=== PATIENT | female | born 1965 | race Caucasian/White ===

== ENCOUNTER → 2018-02-17 | Outpatient (CLI) | payer MEDICARE, OTHER ==
[~2018-02-17] MED LIST: ALBU90OI6; AMIT10 PO; ANTIHYPERTENSIVE; AZIT250 PO; Amphetamine Sal20 MG PO; Antivert12.5 MG PO; BACITO TP; BACL10 PO; BUPR150ER; BUPRENORPHINE HC8 MG SL; BUSP15 PO; BUSP5 PO; Bactrim Ds Tab1 EACH PO; CHOL10002 PO; CONEST1.25 PO; CRANBERRY CONC1 EACH PO; CRUTCH4 USE; CYCL10 PO; DULO60; FLUO20; GABA600; GABA600 PO; HYDACE10B PO; HYDACE5 PO; IBUP600 PO; IBUP800 PO; IBUPROFEN; IRON150C PO; LAMO100 PO; LAMO50 PO; LEVOTHYROXINE; LEVSOD112 PO; LIOT5 PO; LORA1 PO; Lamictal150 MG PO; MECL25; METO10 PO; METO25ER PO; MONT10T PO; MUSCLE RELAXER; Metoprolol Succ25 MG PO; NAPR550 PO; Norco 5-325 Ta1 EACH PO; OMEP20ER PO; OPANA ER40 MG; OXYC10ER; OXYMORPHONE HCL5 MG PO; Omeprazole20 M1; PAIN MED; PARO30; PARO30 PO; PROACE100 PO; RANI150 PO; SENN187; SLEEP AID; SULTRIDS PO; Senna8.6 M1 PO; Silvadene20 GM TOP; Simvastatin20 MG PO; Strattera80 MG PO; TRAZ100 PO; TRAZ50 PO; Toprol Xl25 MG PO; Unithroid100 MCG PO; VALACYCLOVIR1000 MG PO; VARE1 PO
== END ==
LOC: LAB SHORT 19:25 → LAB 19:25
DX: R68.82 Decreased libido (principal)
CPT/HCPCS: 84403

== ENCOUNTER → 2018-06-07 | Outpatient (CLI) | payer MEDICARE, OTHER ==
[~2018-06-07] MED LIST changes: +Hydrocodone-Ap1 EA20; +LEVO-T112 MCG; +LOSARTAN POTAS100 MG PO; +Robaxin500 MG PO
== END | disposition home or self-care (01) ==
LOC: LAB 11:16 → LAB SHORT 11:16
DX: Z51.81 Encounter for therapeutic drug level monitoring (principal); M54.2 Cervicalgia; M54.5 Low back pain; G89.29 Other chronic pain; Z79.1 Long term (current) use of non-steroidal anti-inflammatories (NSAID)
CPT/HCPCS: 80369; G0480

== ENCOUNTER 2018-11-22 17:17 | Emergency (ER) | payer MEDICARE, OTHER ==
[~2018-11-22] VITALS: Ht 172.7 cm; Wt 72.6 kg
[2018-11-22 18:03] LABS: BASOPHILS ABSOLUTE AUTO 0.02 K/mm3 (0.00-0.23); BASOPHILS PERCENT AUTO 0 % (0-2); EOSINOPHILS ABSOLUTE AUTO 0.02 K/mm3 (0.00-0.68); EOSINOPHILS PERCENT AUTO 0 % (0-6); Hematocrit 33.5 % (33.0-51.0); IMMATURE GRAN ABSOLUTE AUTO 0.04 K/mm3 (0.00-0.10); IMMATURE GRAN PERCENT AUTO 1 % (0-1); LYMPHOCYTES ABSOLUTE AUTO 1.84 K/mm3 (0.84-5.20); LYMPHOCYTES PERCENT AUTO 26 % (21-46); MONOCYTES ABSOLUTE AUTO 0.31 K/mm3 (0.16-1.47); MONOCYTES PERCENT AUTO 4 % (4-13); Mean Corpuscular HGB 32.9 pg (26.0-34.0); Mean Corpuscular HGB Conc 32.8 g/dL (31.5-36.5); Mean Corpuscular Volume 100 fL (80-100); Mean Platelet Volume 10.1 fL (9.1-12.4); NEUTROPHILS ABSOLUTE AUTO 4.89 K/mm3 (1.96-9.15); NEUTROPHILS PERCENT AUTO 69 % (41-73); Platelet Count 165 K/mm3 (150-400); RDW Coefficient Variation 13.8 % (11.7-14.2); RDW Standard Deviation 50.6 fL (35.1-46.3); Red Blood Cell Count 3.34 M/mm3 (3.80-5.20); White Blood Cell Count 7.12 K/mm3 (4.00-11.30)
[2018-11-22 18:31] LABS: Alanine Aminotransfer (ALT/SGP 19 U/L (12-78); Albumin, Blood 3.2 g/dL (3.4-5.0); Albumin/Globulin Ratio 1.2 (0.8-1.8); Alk Phos 37 U/L (50-136); Anion Gap 9 mmol/L (6-16); Aspartate Aminotrans (AST/SGOT 15 U/L (12-37); Bilirubin, Total 0.4 mg/dL (0.1-1.0); Blood Urea Nitrogen 34 mg/dL (8-24); Bun/Creatinine Ratio 29.8 (12.0-20.0); CO2, Blood 22 mmol/L (21-32); Calcium, Blood 8.2 mg/dL (8.5-10.1); Chloride, Blood 106 mmol/L (98-108); Creatinine, Blood 1.14 mg/dL (0.40-1.00); Globulin, Blood 2.6 g/dL (2.2-4.0); Glomerular Filtration Rate 52 (60-); Glucose, Blood 123 mg/dL (70-99); Potassium, Blood 4.3 mmol/L (3.5-5.5); Sodium, Blood 137 mmol/L (136-145); Total Protein, Blood 5.8 g/dL (6.4-8.2); Troponin I <0.015 ng/mL (0.000-0.040)
[2018-11-22 19:13] LABS: Free Thyroxine 1.06 ng/dL (0.70-1.60)
[2018-11-22 19:14] LABS: Triiodothyronine, Free 1.44 pg/mL (2.18-3.98)
== END 2018-11-22 20:05 | disposition home or self-care (01) ==
LOC: ER 17:17
PROVIDERS: Emergency Medicine
DX: E86.0 Dehydration (principal); R55 Syncope and collapse; I10 Essential (primary) hypertension; E78.5 Hyperlipidemia, unspecified; E03.9 Hypothyroidism, unspecified; F17.210 Nicotine dependence, cigarettes, uncomplicated; Z79.899 Other long term (current) drug therapy; Z79.891 Long term (current) use of opiate analgesic
CPT/HCPCS: 36415; 71045; 80053; 83735; 84439; 84481; 84484; 85025; 93005; 93010; 96360; 96361; 99284-25; J7030

== ENCOUNTER 2019-01-16 22:07 | Emergency (ER) | payer MEDICARE, OTHER ==
[~2019-01-16] VITALS: Ht 167.6 cm; Wt 68.0 kg
[2019-01-16 22:34] LABS: BASOPHILS ABSOLUTE AUTO 0.01 K/mm3 (0.00-0.23); BASOPHILS PERCENT AUTO 0 % (0-2); EOSINOPHILS ABSOLUTE AUTO 0.06 K/mm3 (0.00-0.68); EOSINOPHILS PERCENT AUTO 2 % (0-6); Hematocrit 31.1 % (33.0-51.0); Hemoglobin 10.1 g/dL (11.5-16.0); IMMATURE GRAN ABSOLUTE AUTO 0.01 K/mm3 (0.00-0.10); IMMATURE GRAN PERCENT AUTO 0 % (0-1); LYMPHOCYTES ABSOLUTE AUTO 1.55 K/mm3 (0.84-5.20); LYMPHOCYTES PERCENT AUTO 41 % (21-46); MONOCYTES PERCENT AUTO 8 % (4-13); Mean Corpuscular HGB 32.5 pg (26.0-34.0); Mean Corpuscular HGB Conc 32.5 g/dL (31.5-36.5); Mean Corpuscular Volume 100 fL (80-100); Mean Platelet Volume 10.7 fL (9.1-12.4); NEUTROPHILS ABSOLUTE AUTO 1.87 K/mm3 (1.96-9.15); NEUTROPHILS PERCENT AUTO 49 % (41-73); Platelet Count 104 K/mm3 (150-400); RDW Standard Deviation 50.6 fL (35.1-46.3); Red Blood Cell Count 3.11 M/mm3 (3.80-5.20)
[2019-01-16 22:54] LABS: Alanine Aminotransfer (ALT/SGP 37 U/L (12-78); Albumin, Blood 3.2 g/dL (3.4-5.0); Albumin/Globulin Ratio 1.1 (0.8-1.8); Alk Phos 81 U/L (50-136); Anion Gap 8 mmol/L (6-16); Aspartate Aminotrans (AST/SGOT 27 U/L (12-37); Bilirubin, Total 0.2 mg/dL (0.1-1.0); Blood Urea Nitrogen 14 mg/dL (8-24); Bun/Creatinine Ratio 14.8 (12.0-20.0); CO2, Blood 27 mmol/L (21-32); Calcium, Blood 8.1 mg/dL (8.5-10.1); Chloride, Blood 105 mmol/L (98-108); Creatinine, Blood 0.94 mg/dL (0.40-1.00); Globulin, Blood 2.8 g/dL (2.2-4.0); Glomerular Filtration Rate >60 (60-); Glucose, Blood 87 mg/dL (70-99); Potassium, Blood 3.9 mmol/L (3.5-5.5); Sodium, Blood 140 mmol/L (136-145); Troponin I <0.015 ng/mL (0.000-0.040)
== END 2019-01-16 23:09 | disposition home or self-care (01) ==
LOC: ER 22:07
PROVIDERS: Emergency Medicine
DX: I10 Essential (primary) hypertension (principal); Z88.0 Allergy status to penicillin; Z79.899 Other long term (current) drug therapy; E78.5 Hyperlipidemia, unspecified; E03.9 Hypothyroidism, unspecified; F17.210 Nicotine dependence, cigarettes, uncomplicated
CPT/HCPCS: 36415; 80053; 84484; 85025; 93005; 93010; 99284-25

== ENCOUNTER → 2019-02-05 | Outpatient (CLI) | payer MEDICARE, OTHER ==
[~2019-02-05] MED LIST changes: +CORTISONE60 GM TOP; +HYDHCL25 PO
[2019-02-07 14:18] LABS: Adenovirus F 40/41 Not Detected (NOT DETECT); Astrovirus Not Detected (NOT DETECT); Campylobacter Sp Not Detected (NOT DETECT); Cryptosporidium Not Detected (NOT DETECT); Cyclospora Cayetanensis Not Detected (NOT DETECT); E. Coli O157 Not Detected (NOT DETECT); Entamoeba Histolytica Not Detected (NOT DETECT); Enteroaggregative E. coli-EAEC Not Detected (NOT DETECT); Enteropathogenic E. coli-EPEC Not Detected (NOT DETECT); Enterotoxigenic E. coli-ETEC Not Detected (NOT DETECT); Giardia Lamblia Not Detected (NOT DETECT); Norovirus GI/GII Not Detected (NOT DETECT); Plesiomonas Shigelloides Not Detected (NOT DETECT); Rotavirus A Not Detected (NOT DETECT); Salmonella Sp Not Detected (NOT DETECT); Sapovirus Not Detected (NOT DETECT); Shiga Toxin-prod E. coli-STEC Not Detected (NOT DETECT); Shigella/Enteroin E. coli-EIEC Not Detected (NOT DETECT); Vibrio Cholerae Not Detected (NOT DETECT); Vibrio Sp Not Detected (NOT DETECT); Yersinia Enterocolitica Not Detected (NOT DETECT)
== END | disposition home or self-care (01) ==
LOC: OLS 17:30 → LAB SHORT 17:30 → EDSTATUS 01-26 08:25 → LAB FUT 01-26 08:25
PROVIDERS: Family Medicine
DX: K52.9 Noninfective gastroenteritis and colitis, unspecified (principal)
CPT/HCPCS: 0097U

== ENCOUNTER 2019-02-18 20:52 | Emergency (ER) | payer OTHER ==
[~2019-02-18] VITALS: Ht 165.1 cm; Wt 65.8 kg
[~2019-02-18 20:52] MED LIST changes: -CORTISONE60 GM TOP; -HYDHCL25 PO
[2019-02-18 21:18] LABS: BASOPHILS ABSOLUTE AUTO 0.03 K/mm3 (0.00-0.23); BASOPHILS PERCENT AUTO 0 % (0-2); EOSINOPHILS ABSOLUTE AUTO 0.04 K/mm3 (0.00-0.68); EOSINOPHILS PERCENT AUTO 1 % (0-6); Hematocrit 35.8 % (33.0-51.0); IMMATURE GRAN ABSOLUTE AUTO 0.02 K/mm3 (0.00-0.10); IMMATURE GRAN PERCENT AUTO 0 % (0-1); LYMPHOCYTES ABSOLUTE AUTO 1.28 K/mm3 (0.84-5.20); LYMPHOCYTES PERCENT AUTO 16 % (21-46); MONOCYTES ABSOLUTE AUTO 0.73 K/mm3 (0.16-1.47); MONOCYTES PERCENT AUTO 9 % (4-13); Mean Corpuscular HGB 33.1 pg (26.0-34.0); Mean Corpuscular HGB Conc 33.5 g/dL (31.5-36.5); Mean Corpuscular Volume 99 fL (80-100); Mean Platelet Volume 10.5 fL (9.1-12.4); NEUTROPHILS PERCENT AUTO 74 % (41-73); Platelet Count 122 K/mm3 (150-400); RDW Coefficient Variation 12.9 % (11.7-14.2); RDW Standard Deviation 46.3 fL (35.1-46.3); Red Blood Cell Count 3.62 M/mm3 (3.80-5.20)
[2019-02-18 21:35] LABS: Alanine Aminotransfer (ALT/SGP 33 U/L (12-78); Albumin, Blood 4.3 g/dL (3.4-5.0); Albumin/Globulin Ratio 1.3 (0.8-1.8); Alk Phos 69 U/L (50-136); Anion Gap 10 mmol/L (6-16); Aspartate Aminotrans (AST/SGOT 51 U/L (12-37); Bilirubin, Total 0.6 mg/dL (0.1-1.0); Blood Urea Nitrogen 15 mg/dL (8-24); Bun/Creatinine Ratio 20.5 (12.0-20.0); CO2, Blood 25 mmol/L (21-32); Calcium, Blood 9.3 mg/dL (8.5-10.1); Chloride, Blood 101 mmol/L (98-108); Creatinine, Blood 0.73 mg/dL (0.40-1.00); Globulin, Blood 3.4 g/dL (2.2-4.0); Glomerular Filtration Rate >60 (60-); Glucose, Blood 88 mg/dL (70-99); Potassium, Blood 3.9 mmol/L (3.5-5.5); Sodium, Blood 136 mmol/L (136-145); Total Protein, Blood 7.7 g/dL (6.4-8.2)
[2019-02-18] MEDS ORDERED: CORTISONE60 GM TOP (21:54)
[2019-02-18] MEDS ORDERED: HYDHCL25 PO (21:54)
== END 2019-02-18 23:25 | disposition home or self-care (01) ==
LOC: ER 20:52
PROVIDERS: Emergency Medicine
DX: S40.862A Insect bite (nonvenomous) of left upper arm, initial encounter (principal); S00.06XA Insect bite (nonvenomous) of scalp, initial encounter; F41.9 Anxiety disorder, unspecified; R05 Cough; I10 Essential (primary) hypertension; E03.9 Hypothyroidism, unspecified; E78.5 Hyperlipidemia, unspecified; F17.210 Nicotine dependence, cigarettes, uncomplicated; Z88.0 Allergy status to penicillin; Z79.899 Other long term (current) drug therapy; Z79.891 Long term (current) use of opiate analgesic; W57.XXXA Bitten or stung by nonvenomous insect and other nonvenomous arthropods, initial encounter
CPT/HCPCS: 71046; 80053; 85025; 96374; 99284-25; J2060

== ENCOUNTER 2019-02-19 14:18 | Emergency (ER) | payer MEDICARE, OTHER ==
[~2019-02-19] VITALS: Ht 167.6 cm; Wt 67.1 kg
[~2019-02-19 14:18] MED LIST changes: +CORTISONE60 GM TOP; +HYDHCL25 PO
== END 2019-02-19 18:09 | disposition home or self-care (01) ==
LOC: ER 14:18
DX: S46.911A Strain of unspecified muscle, fascia and tendon at shoulder and upper arm level, right arm, initial encounter (principal); S46.812A Strain of other muscles, fascia and tendons at shoulder and upper arm level, left arm, initial encounter; W19.XXXA Unspecified fall, initial encounter; Z79.899 Other long term (current) drug therapy; F20.9 Schizophrenia, unspecified; F17.210 Nicotine dependence, cigarettes, uncomplicated
CPT/HCPCS: 73070; 73090; 99283-25

== ENCOUNTER → 2019-08-01 | Outpatient (CLI) | payer MEDICARE, OTHER ==
[2019-08-01 18:33] LABS: Appearance, Urine Clear (Clear); Bilirubin, Urine Neg (Neg); Blood, Urine Neg (Neg); Color, Urine Yellow (P-Yellow); Glucose Qualitative, Urine Neg (Neg); Ketones, Urine Neg (Neg); Leukocyte Esterase, Urine Neg (Neg); Nitrite, Urine Neg (Neg); Protein, Urine Neg (Neg); Urobilinogen, Urine NORM (Normal)
== END ==
LOC: LAB 17:40 → LAB SHORT 17:40
PROVIDERS: Registered Nurse Community Health
DX: N89.8 Other specified noninflammatory disorders of vagina (principal); R33.9 Retention of urine, unspecified; R35.8 Other polyuria; R30.0 Dysuria; R87.89 Other abnormal findings in specimens from female genital organs; Z90.710 Acquired absence of both cervix and uterus
CPT/HCPCS: 81003; 87070; 87086; 87205

== ENCOUNTER → 2020-01-14 | Outpatient (CLI) | payer MEDICARE, OTHER ==
[~2020-01-14] MED LIST changes: +GABAPENTIN600 MG PO; +Norco 10-325 T1 EACH PO
== END | disposition home or self-care (01) ==
LOC: LAB SHORT 11:19 → LAB EV 11:19
DX: Z48.01 Encounter for change or removal of surgical wound dressing (principal)
CPT/HCPCS: 87071; 87075; 87205

== ENCOUNTER 2020-03-28 13:38 | Day surgery (SDC) | payer MEDICARE, OTHER ==
[~2020-03-28] VITALS: Ht 167.6 cm; Wt 66.1 kg
[~2020-03-28 13:38] MED LIST changes: +ALBU90OI INH; +EUTHYROX125 MCG PO; +Flovent Disku250 MCG INH; +Gabapentin600 MG PO; +IBU600 MG PO; +LOSARTAN POTAS100 M1 PO; +MODA200 PO; +MODAFINIL100 MG PO; +OMEPRAZOLE MAGN20 MG PO; +Premarin0.3 MG PO; +Prozac20 MG PO; +SENNA LAXATIVE8.6 MG PO; +SIMV40 PO; +TOPROL XL200 MG PO
== END 2020-03-28 15:25 | disposition home or self-care (01) ==
LOC: ORSCSDS 13:38
PROVIDERS: Internal Medicine Gastroenterology
PROC: 0D757ZZ Dilation of Esophagus, Via Natural or Artificial Opening (ICD-10-PCS; principal; 2020-03-28 14:45)
PROC: 0DB58ZX Excision of Esophagus, Via Natural or Artificial Opening Endoscopic, Diagnostic (ICD-10-PCS; principal; 2020-03-28 14:45)
DX: R13.14 Dysphagia, pharyngoesophageal phase (principal); K21.9 Gastro-esophageal reflux disease without esophagitis; F17.210 Nicotine dependence, cigarettes, uncomplicated; I10 Essential (primary) hypertension; J45.909 Unspecified asthma, uncomplicated; E03.9 Hypothyroidism, unspecified; G40.909 Epilepsy, unspecified, not intractable, without status epilepticus; Z79.899 Other long term (current) drug therapy
CPT/HCPCS: 87081; 88305; J2704; J7120

== ENCOUNTER 2020-06-04 15:21 | Emergency (ER) | payer MEDICARE, OTHER ==
[~2020-06-04] VITALS: Ht 167.6 cm; Wt 65.8 kg
[~2020-06-04 15:21] MED LIST changes: -ALBU90OI INH; -EUTHYROX125 MCG PO; -Flovent Disku250 MCG INH; -Gabapentin600 MG PO; -IBU600 MG PO; -LOSARTAN POTAS100 M1 PO; -MODA200 PO; -MODAFINIL100 MG PO; -OMEPRAZOLE MAGN20 MG PO; -Prozac20 MG PO; -SIMV40 PO; -TOPROL XL200 MG PO
[2020-06-04 17:50] LABS: Calcium, Ionized (POC) 1.15 mmol/L (1.10-1.46); Chloride (POC) 96 mmol/L (98-108); Creatinine (POC) 1.2 mg/dL (0.6-1.0); Glucose (ISTAT POC) 91 mg/dL (70-99); Hemoglobin (POC) 12.6 g/dL (12.0-16.0); Sodium (POC) 131 mmol/L (135-148); Total CO2 (POC) 28 mmol/L (21-32)
[2020-06-06] MEDS ORDERED: ACYCLOVIR5 GM TOP (21:09)
[2020-06-06] MEDS ORDERED: ACYCLOVIR400 MG PO (21:10)
[2020-06-06] MEDS ORDERED: Chantix1 MG PO (21:11)
[2020-06-06] MEDS ORDERED: HYDACE10B PO (21:13)
[2020-06-06] MEDS ORDERED: ATOMOXETINE HCL PO (21:14)
[2020-06-06] MEDS ORDERED: TRAZ100 PO (21:14)
[2020-06-06] MEDS ORDERED: AMLODIPINE BESYL5 MG PO (21:17)
[2020-06-06] MEDS ORDERED: CHLO25B PO (21:17)
[2020-06-06] MEDS ORDERED: CYCL10 PO (21:21)
[2020-06-06] MEDS ORDERED: FLUOXETINE HCL60 MG PO (21:22)
[2020-06-06] MEDS ORDERED: MODA200 PO (21:23)
[2020-06-06] MEDS ORDERED: TOPROL XL200 MG PO (21:23)
[2020-06-06] MEDS ORDERED: IBU600 MG PO (21:24)
[2020-06-06] MEDS ORDERED: MONT10T PO (21:26)
[2020-06-06] MEDS ORDERED: Flovent Disku250 MCG INH (21:27)
[2020-06-06] MEDS ORDERED: Buspirone HCl15 MG PO (21:28)
[2020-06-06] MEDS ORDERED: Flonase 0.05% N16 GM (21:29)
[2020-06-06] MEDS ORDERED: Gabapentin600 MG PO (21:31)
[2020-06-06] MEDS ORDERED: Estrace Vagin42.5 GM (21:38)
[2020-06-06] MEDS ORDERED: OMEPRAZOLE MAGN20 MG PO (21:38)
[2020-06-06] MEDS ORDERED: PROG100 PO (21:39)
[2020-06-06] MEDS ORDERED: ESTRADIOL1 M1 PO (21:39)
[2020-06-06] MEDS ORDERED: EUTHYROX125 MCG PO (21:40)
[2020-06-06] MEDS ORDERED: LOSARTAN POTAS100 M1 PO (21:40)
[2020-06-06] MEDS ORDERED: SIMV40 PO (21:41)
[2020-06-06] MEDS ORDERED: ALBU90OI INH (21:41)
[2020-06-06] MEDS ORDERED: B-121000 MC3 PO (22:59)
[2020-06-06] MEDS ORDERED: VITAMIN D325 MC3 PO (23:01)
[2020-06-06] MEDS ORDERED: CALCIUM PO (23:02)
[2020-06-06] MEDS ORDERED: FEROSUL325 M1 PO (23:02)
[2020-06-06] MEDS ORDERED: MULVITA PO (23:03)
== END 2020-06-04 18:15 | disposition home or self-care (01) ==
LOC: ER 15:21
PROVIDERS: Emergency Medicine
DX: S06.0X9A Concussion with loss of consciousness of unspecified duration, initial encounter (principal); S00.83XA Contusion of other part of head, initial encounter; F17.210 Nicotine dependence, cigarettes, uncomplicated; Z79.899 Other long term (current) drug therapy; W18.30XA Fall on same level, unspecified, initial encounter
CPT/HCPCS: 36415; 70450; 72125; 80047; 85014; 93005; 93010; 99284-25

== ENCOUNTER 2020-11-20 13:22 | Emergency (ER) | payer MEDICARE, OTHER ==
[~2020-11-20] VITALS: Ht 167.6 cm; Wt 65.3 kg
[~2020-11-20 13:22] MED LIST changes: +ACYCLOVIR400 MG PO; +ACYCLOVIR5 GM TOP; +ALBU90OI INH; +AMLODIPINE BESYL5 MG PO; +ATOMOXETINE HCL PO; +B-121000 MC3 PO; +Buspirone HCl15 MG PO; +CALCIUM PO; +CHLO25B PO; +Chantix1 MG PO; +ESTRADIOL1 M1 PO; +EUTHYROX125 MCG PO; +Estrace Vagin42.5 GM; +FEROSUL325 M1 PO; +FLUOXETINE HCL60 MG PO; +Flonase 0.05% N16 GM; +Flovent Disku250 MCG INH; +Gabapentin600 MG PO; +IBU600 MG PO; +LOSARTAN POTAS100 M1 PO; +MODA200 PO; +MULVITA PO; +OMEPRAZOLE MAGN20 MG PO; +PROG100 PO; +SIMV40 PO; +TOPROL XL200 MG PO; +VITAMIN D325 MC3 PO
[2020-11-20 14:30] LABS: Calcium, Ionized (POC) 1.18 mmol/L (1.10-1.46); Chloride (POC) 100 mmol/L (98-108); Creatinine (POC) 1.1 mg/dL (0.6-1.0); Glucose (ISTAT POC) 123 mg/dL (70-99); Hemoglobin (POC) 14.3 g/dL (12.0-16.0); Potassium (POC) 3.7 mmol/L (3.5-5.5); Sodium (POC) 135 mmol/L (135-148); Total CO2 (POC) 22 mmol/L (21-32)
== END 2020-11-20 14:42 | disposition home or self-care (01) ==
LOC: ER 13:22
PROVIDERS: Physician Assistant
DX: L24.5 Irritant contact dermatitis due to other chemical products (principal); F17.200 Nicotine dependence, unspecified, uncomplicated; Z79.899 Other long term (current) drug therapy
CPT/HCPCS: 36415; 80047; 85014; 99282

== ENCOUNTER 2023-02-02 11:37 | Emergency (ER) | payer MEDICARE, OTHER ==
[~2023-02-02] VITALS: Ht 167.6 cm; Wt 68.0 kg
[2023-02-02 12:22] LABS: Source, Urine Clean Catch
[2023-02-02 12:26] LABS: BASOPHILS ABSOLUTE AUTO 0.02 K/mm3 (0.00-0.23); BASOPHILS PERCENT AUTO 0 % (0-2); EOSINOPHILS ABSOLUTE AUTO 0.08 K/mm3 (0.00-0.68); EOSINOPHILS PERCENT AUTO 2 % (0-6); Hematocrit 35.2 % (33.0-51.0); Hemoglobin 11.9 g/dL (11.5-16.0); IMMATURE GRAN ABSOLUTE AUTO 0.01 K/mm3 (0.00-0.10); IMMATURE GRAN PERCENT AUTO 0 % (0-1); LYMPHOCYTES ABSOLUTE AUTO 1.72 K/mm3 (0.84-5.20); LYMPHOCYTES PERCENT AUTO 34 % (21-46); MONOCYTES ABSOLUTE AUTO 0.43 K/mm3 (0.16-1.47); MONOCYTES PERCENT AUTO 9 % (4-13); Mean Corpuscular HGB 31.1 pg (26.0-34.0); Mean Corpuscular HGB Conc 33.8 g/dL (31.5-36.5); Mean Corpuscular Volume 92 fL (80-100); Mean Platelet Volume 9.7 fL (9.1-12.4); NEUTROPHILS ABSOLUTE AUTO 2.75 K/mm3 (1.96-9.15); NEUTROPHILS PERCENT AUTO 55 % (41-73); Platelet Count 189 K/mm3 (150-400); RDW Coefficient Variation 15.1 % (11.7-14.2); RDW Standard Deviation 50.9 fL (35.1-46.3); Red Blood Cell Count 3.83 M/mm3 (3.80-5.20); White Blood Cell Count 5.01 K/mm3 (4.00-11.30)
[2023-02-02 12:27] LABS: Appearance, Urine Hazy (Clear); Bilirubin, Urine Neg (Neg); Blood, Urine 1+ (Neg); Color, Urine Yellow (P-Yellow); Glucose Qualitative, Urine Neg (Neg); Ketones, Urine Neg (Neg); Leukocyte Esterase, Urine Neg (Neg); Nitrite, Urine Neg (Neg); Protein, Urine 1+ (Neg); Urobilinogen, Urine NORM (Normal)
[2023-02-02 12:41] LABS: Bacteria Many /hpf; Mucus Mod (0-Heavy); Squamous Epithelial Cells Many /hpf (Few)
[2023-02-02 12:47] LABS: U Cannabinoids Screen DETECTED; U Opiates Screen DETECTED
[2023-02-02 12:48] LABS: U Amphetamine Screen Not Detected; U Barbituate Screen Not Detected; U Benzodiazapine Screen Not Detected; U Buprenorphine Screen Not Detected; U Cocaine Screen Not Detected; U Methadone Screen Not Detected; U Methamphetamine Screen Not Detected; U Oxycodone Screen Not Detected; U Phencyclidine Screen Not Detected; U Propoxyphene Screen Not Detected
[2023-02-02 12:48] LABS: Albumin, Blood 3.8 g/dL (3.4-5.0); Albumin/Globulin Ratio 1.1 (0.8-1.8); Bilirubin, Total 0.3 mg/dL (0.1-1.0); Bun/Creatinine Ratio 24.9 (12.0-20.0); Creatinine, Blood 0.89 mg/dL (0.40-1.00); Globulin, Blood 3.5 g/dL (2.2-4.0); Potassium, Blood 3.8 mmol/L (3.5-5.5); Total Protein, Blood 7.3 g/dL (6.4-8.2)
[2023-02-02 14:13] VITALS: BP 122/65
== END 2023-02-02 14:13 | disposition home or self-care (01) ==
LOC: ER 11:37
PROVIDERS: Emergency Medicine
DX: I95.1 Orthostatic hypotension (principal); Z79.899 Other long term (current) drug therapy; K21.9 Gastro-esophageal reflux disease without esophagitis; E03.9 Hypothyroidism, unspecified; Z87.891 Personal history of nicotine dependence
CPT/HCPCS: 71045; 80053; 81001; 84484; 85025; 87086; 93005; 93010; 96360; 99284-25; J7030

== ENCOUNTER 2023-05-05 07:57 | Emergency (ER) | payer MEDICARE, OTHER ==
[~2023-05-05] VITALS: Ht 165.1 cm; Wt 65.8 kg
[2023-05-05 08:39] VITALS: BP 198/122
== END 2023-05-05 09:31 | disposition home or self-care (01) ==
LOC: ER 07:57
DX: M54.50 Low back pain, unspecified (principal); G89.4 Chronic pain syndrome; E03.9 Hypothyroidism, unspecified; W17.89XA Other fall from one level to another, initial encounter; X50.1XXA Overexertion from prolonged static or awkward postures, initial encounter; Z79.890 Hormone replacement therapy; Z79.899 Other long term (current) drug therapy; Z79.51 Long term (current) use of inhaled steroids; Z98.1 Arthrodesis status; Z87.891 Personal history of nicotine dependence
CPT/HCPCS: 72040; 72100; 99283-25

== ENCOUNTER → 2023-05-11 | Outpatient (CLI) | payer MEDICARE, OTHER ==
[2023-05-11 17:40] LABS: BASOPHILS ABSOLUTE AUTO 0.02 K/mm3 (0.00-0.23); BASOPHILS PERCENT AUTO 0 % (0-2); EOSINOPHILS ABSOLUTE AUTO 0.01 K/mm3 (0.00-0.68); EOSINOPHILS PERCENT AUTO 0 % (0-6); Hematocrit 29.5 % (33.0-51.0); Hemoglobin 9.8 g/dL (11.5-16.0); IMMATURE GRAN ABSOLUTE AUTO 0.01 K/mm3 (0.00-0.10); IMMATURE GRAN PERCENT AUTO 0 % (0-1); LYMPHOCYTES ABSOLUTE AUTO 1.13 K/mm3 (0.84-5.20); LYMPHOCYTES PERCENT AUTO 13 % (21-46); MONOCYTES ABSOLUTE AUTO 0.69 K/mm3 (0.16-1.47); MONOCYTES PERCENT AUTO 8 % (4-13); Mean Corpuscular HGB 30.2 pg (26.0-34.0); Mean Corpuscular HGB Conc 33.2 g/dL (31.5-36.5); Mean Corpuscular Volume 91 fL (80-100); Mean Platelet Volume 9.6 fL (9.1-12.4); NEUTROPHILS ABSOLUTE AUTO 6.86 K/mm3 (1.96-9.15); NEUTROPHILS PERCENT AUTO 79 % (41-73); Platelet Count 281 K/mm3 (150-400); RDW Coefficient Variation 12.8 % (11.7-14.2); RDW Standard Deviation 42.3 fL (35.1-46.3); Red Blood Cell Count 3.25 M/mm3 (3.80-5.20); White Blood Cell Count 8.72 K/mm3 (4.00-11.30)
[2023-05-11 18:30] LABS: Albumin/Globulin Ratio 0.7 (0.8-1.8); Bilirubin, Total 0.4 mg/dL (0.1-1.0); Bun/Creatinine Ratio 13.6 (12.0-20.0); Calcium, Blood 9.2 mg/dL (8.5-10.1); Creatinine, Blood 0.74 mg/dL (0.40-1.00); Globulin, Blood 4.3 g/dL (2.2-4.0); Total Protein, Blood 7.3 g/dL (6.4-8.2)
== END ==
LOC: LAB 17:35 → LAB SHORT 17:35
PROVIDERS: Physician Assistant Medical
DX: R11.2 Nausea with vomiting, unspecified (principal)
CPT/HCPCS: 80053; 83690; 85025

== ENCOUNTER 2024-02-05 14:39 | Emergency (ER) | payer OTHER, MEDICARE ==
[~2024-02-05] VITALS: Ht 165.1 cm; Wt 64.9 kg
[2024-02-05] MEDS ORDERED: Acetaminophen 500 MG Tab PO ONE (15:45)
[2024-02-05 17:00] VITALS: BP 152/85
[2024-02-05] MEDS ORDERED: Morphine Sulfate 4 MG/1 ML Injection IV ONE (17:10)
[2024-02-05] MEDS ORDERED: CYCL10 PO (17:12)
[2024-02-05] MEDS ORDERED: IBUP600 PO (17:12)
[2024-02-05] MEDS ORDERED: LIDO700A20 TOP (17:12)
== END 2024-02-05 18:33 | disposition home or self-care (01) ==
LOC: ER 14:39
DX: M54.2 Cervicalgia (principal); M48.04 Spinal stenosis, thoracic region; V43.53XA Car driver injured in collision with pick-up truck in traffic accident, initial encounter; Z79.899 Other long term (current) drug therapy; K21.9 Gastro-esophageal reflux disease without esophagitis; E03.9 Hypothyroidism, unspecified; Z87.891 Personal history of nicotine dependence
CPT/HCPCS: 72125; 72128; A9270; J2270

== ENCOUNTER → 2024-03-21 | Outpatient (CLI) | payer MEDICARE, OTHER ==
[~2024-03-21] MED LIST changes: +LIDO700A20 TOP
== END ==
LOC: LAB 15:54 → LAB SHORT 15:54
DX: N39.0 Urinary tract infection, site not specified (principal)
CPT/HCPCS: 87077; 87086; 87186

== ENCOUNTER 2024-06-17 03:54 | Day surgery (SDC) | payer MEDICARE, OTHER ==
[2024-06-17] MEDS ORDERED: Lidocaine HCl 4% Cream 5 GM ONE (14:16)
[2024-06-17] MEDS ORDERED: Silver Sulfadiazine 1% Cream 25 APPLIC/25 GM Tube ONE (14:30)
== END 2024-06-17 23:00 | disposition home or self-care (01) ==
LOC: WOUND 03:54
DX: T22.251A Burn of second degree of right shoulder, initial encounter (principal); I10 Essential (primary) hypertension; E03.9 Hypothyroidism, unspecified; J44.9 Chronic obstructive pulmonary disease, unspecified; K50.90 Crohn's disease, unspecified, without complications; F31.9 Bipolar disorder, unspecified; F17.200 Nicotine dependence, unspecified, uncomplicated; Z91.011 Allergy to milk products
CPT/HCPCS: A9270

== ENCOUNTER 2024-06-22 01:43 | Emergency (ER) | payer MEDICARE, OTHER ==
[~2024-06-22] VITALS: Ht 165.1 cm; Wt 63.5 kg
[2024-06-22] MEDS ORDERED: Losartan Potassium 50 MG Tab PO ONE ×2 (04:40→05:50)
[2024-06-22 04:49] LABS: Source, Urine Clean Catch
[2024-06-22 04:53] LABS: BASOPHILS ABSOLUTE AUTO 0.02 K/mm3 (0.00-0.23); BASOPHILS PERCENT AUTO 0 % (0-2); Bilirubin, Urine Neg (Neg); Blood, Urine Neg (Neg); EOSINOPHILS ABSOLUTE AUTO 0.05 K/mm3 (0.00-0.68); EOSINOPHILS PERCENT AUTO 1 % (0-6); Glucose Qualitative, Urine Neg (Neg); Hematocrit 34.8 % (33.0-51.0); Hemoglobin 11.7 g/dL (11.5-16.0); IMMATURE GRAN ABSOLUTE AUTO 0.02 K/mm3 (0.00-0.10); IMMATURE GRAN PERCENT AUTO 0 % (0-1); Ketones, Urine Neg (Neg); LYMPHOCYTES ABSOLUTE AUTO 1.92 K/mm3 (0.84-5.20); LYMPHOCYTES PERCENT AUTO 24 % (21-46); Leukocyte Esterase, Urine Neg (Neg); MONOCYTES ABSOLUTE AUTO 0.88 K/mm3 (0.16-1.47); MONOCYTES PERCENT AUTO 11 % (4-13); Mean Corpuscular HGB 29.9 pg (26.0-34.0); Mean Corpuscular HGB Conc 33.6 g/dL (31.5-36.5); Mean Corpuscular Volume 89 fL (80-100); Mean Platelet Volume 9.2 fL (9.1-12.4); NEUTROPHILS ABSOLUTE AUTO 5.02 K/mm3 (1.96-9.15); NEUTROPHILS PERCENT AUTO 63 % (41-73); Nitrite, Urine Neg (Neg); Platelet Count 236 K/mm3 (150-400); Protein, Urine Neg (Neg); RDW Coefficient Variation 15.3 % (11.7-14.2); Red Blood Cell Count 3.91 M/mm3 (3.80-5.20); Specific Gravity, Urine 1.015 (1.003-1.022); Urobilinogen, Urine NORM (Normal); White Blood Cell Count 7.91 K/mm3 (4.00-11.30); pH, Urine 6.5 (5.0-8.0)
[2024-06-22 04:54] LABS: Appearance, Urine Clear (Clear); Color, Urine Yellow (P-Yellow)
[2024-06-22 05:12] LABS: Albumin, Blood 3.4 g/dL (3.4-5.0); Albumin/Globulin Ratio 0.9 (0.8-1.8); Bilirubin, Total 0.4 mg/dL (0.1-1.0); Bun/Creatinine Ratio 31.8 (12.0-20.0); Calcium, Blood 8.9 mg/dL (8.5-10.1); Creatinine, Blood 0.57 mg/dL (0.40-1.00); Globulin, Blood 3.7 g/dL (2.2-4.0); Potassium, Blood 4.2 mmol/L (3.5-5.5); Total Protein, Blood 7.1 g/dL (6.4-8.2)
[2024-06-22 05:47] VITALS: BP 156/101
== END 2024-06-22 06:07 | disposition home or self-care (01) ==
LOC: ER 01:43
PROVIDERS: Emergency Medicine
DX: H10.11 Acute atopic conjunctivitis, right eye (principal); H15.89 Other disorders of sclera; T22.051D Burn of unspecified degree of right shoulder, subsequent encounter; K21.9 Gastro-esophageal reflux disease without esophagitis; E03.9 Hypothyroidism, unspecified; Z87.891 Personal history of nicotine dependence; Z79.51 Long term (current) use of inhaled steroids; Z79.899 Other long term (current) drug therapy
CPT/HCPCS: 80053; 81003; 85025; 93005; 93010; 99283-25; A9270

== ENCOUNTER → 2024-06-27 | Outpatient (CLI) | payer MEDICARE, OTHER | LOC: LAB SHORT 03:00 → LAB 03:00 | DX: R05.1 Acute cough (principal) | CPT/HCPCS: 87070; 87205 ==

== ENCOUNTER 2024-06-28 05:24 | Day surgery (SDC) | payer MEDICARE, OTHER ==
[2024-06-28] MEDS ORDERED: Lidocaine HCl 4% Cream 5 GM ONE (10:53)
== END 2024-06-28 23:00 | disposition home or self-care (01) ==
LOC: WOUND 05:24
DX: T22.231A Burn of second degree of right upper arm, initial encounter (principal); I10 Essential (primary) hypertension; E03.9 Hypothyroidism, unspecified; J44.9 Chronic obstructive pulmonary disease, unspecified; F31.9 Bipolar disorder, unspecified; Z72.0 Tobacco use
CPT/HCPCS: A6196; A6213; A9270

== ENCOUNTER → 2024-06-28 | Outpatient (CLI) | payer MEDICARE, OTHER ==
[2024-06-29 12:21] LABS: Chlamydia Trachomatis Throat NOT DETECTED (NOT DETECT); Neisseria Gonorrhoea Throat NOT DETECTED (NOT DETECT)
[2024-06-29 13:21] LABS: Chlamydia Trachomatis Rectal NOT DETECTED (NOT DETECT); Neisseria Gonorrhoea Rectal NOT DETECTED (NOT DETECT)
== END | disposition home or self-care (01) ==
LOC: LAB SHORT 15:10 → LAB 15:10
PROVIDERS: Registered Nurse Community Health
DX: Z11.3 Encounter for screening for infections with a predominantly sexual mode of transmission (principal)
CPT/HCPCS: 87491; 87591

== ENCOUNTER 2024-07-05 01:38 | Day surgery (SDC) | payer MEDICARE, OTHER ==
[2024-07-05] MEDS ORDERED: Lidocaine HCl 4% Cream 5 GM ONE (10:33)
== END 2024-07-05 23:00 | disposition home or self-care (01) ==
LOC: WOUND 01:38
DX: J44.9 Chronic obstructive pulmonary disease, unspecified (principal); F31.9 Bipolar disorder, unspecified; T22.20XD Burn of second degree of shoulder and upper limb, except wrist and hand, unspecified site, subsequent encounter; R05.9 Cough, unspecified; I10 Essential (primary) hypertension; R55 Syncope and collapse; E03.9 Hypothyroidism, unspecified; Z72.0 Tobacco use
CPT/HCPCS: 71046; 95819; A6196; A6213; A9270

== ENCOUNTER 2024-07-11 01:00 | Day surgery (SDC) | payer MEDICARE, OTHER | END 2024-07-11 23:00 | disposition home or self-care (01) | LOC: WOUND 01:00 | DX: T22.231A Burn of second degree of right upper arm, initial encounter (principal); I10 Essential (primary) hypertension; E03.9 Hypothyroidism, unspecified; F31.9 Bipolar disorder, unspecified; J44.9 Chronic obstructive pulmonary disease, unspecified; I73.9 Peripheral vascular disease, unspecified; I87.2 Venous insufficiency (chronic) (peripheral); Z72.0 Tobacco use | CPT/HCPCS: A6196; A6213 ==

== ENCOUNTER 2024-07-25 01:14 | Day surgery (SDC) | payer MEDICARE, OTHER | END 2024-07-25 23:00 | disposition home or self-care (01) | LOC: WOUND 01:14 | DX: T22.231D Burn of second degree of right upper arm, subsequent encounter (principal); I10 Essential (primary) hypertension; E03.9 Hypothyroidism, unspecified; F31.9 Bipolar disorder, unspecified; J44.9 Chronic obstructive pulmonary disease, unspecified; I73.9 Peripheral vascular disease, unspecified; I87.2 Venous insufficiency (chronic) (peripheral) ==

== ENCOUNTER 2024-08-01 01:39 | Day surgery (SDC) | payer MEDICARE, OTHER | END 2024-08-01 23:00 | disposition home or self-care (01) | LOC: WOUND 01:39 | DX: T22.231D Burn of second degree of right upper arm, subsequent encounter (principal); I10 Essential (primary) hypertension; F31.9 Bipolar disorder, unspecified; J44.9 Chronic obstructive pulmonary disease, unspecified; E03.9 Hypothyroidism, unspecified; I73.9 Peripheral vascular disease, unspecified; I87.2 Venous insufficiency (chronic) (peripheral); Z72.0 Tobacco use | CPT/HCPCS: G0463 ==

== ENCOUNTER 2024-08-08 02:11 | Day surgery (SDC) | payer MEDICARE, OTHER | END 2024-08-08 23:00 | disposition home or self-care (01) | LOC: WOUND 02:11 | DX: T22.231D Burn of second degree of right upper arm, subsequent encounter (principal); I10 Essential (primary) hypertension; F31.9 Bipolar disorder, unspecified; F44.9 Dissociative and conversion disorder, unspecified; B00.9 Herpesviral infection, unspecified; E03.9 Hypothyroidism, unspecified; I73.9 Peripheral vascular disease, unspecified; I87.2 Venous insufficiency (chronic) (peripheral); X16.XXXA Contact with hot heating appliances, radiators and pipes, initial encounter | CPT/HCPCS: G0463 ==

== ENCOUNTER 2024-08-25 04:08 | Day surgery (SDC) | payer MEDICARE, OTHER | END 2024-08-25 23:00 | disposition home or self-care (01) | LOC: WOUND 04:08 | DX: T22.231D Burn of second degree of right upper arm, subsequent encounter (principal); X19.XXXD Contact with other heat and hot substances, subsequent encounter; I73.9 Peripheral vascular disease, unspecified; I87.2 Venous insufficiency (chronic) (peripheral); I10 Essential (primary) hypertension; F31.9 Bipolar disorder, unspecified; J44.9 Chronic obstructive pulmonary disease, unspecified; E03.9 Hypothyroidism, unspecified; Z72.0 Tobacco use | CPT/HCPCS: G0463 ==

== ENCOUNTER 2024-09-01 00:10 | Day surgery (SDC) | payer MEDICARE, OTHER | END 2024-09-01 23:00 | disposition home or self-care (01) | LOC: WOUND 00:10 | DX: Z09 Encounter for follow-up examination after completed treatment for conditions other than malignant neoplasm (principal); I10 Essential (primary) hypertension; F31.9 Bipolar disorder, unspecified; J44.9 Chronic obstructive pulmonary disease, unspecified; B00.9 Herpesviral infection, unspecified; E03.9 Hypothyroidism, unspecified; I73.9 Peripheral vascular disease, unspecified; Z72.0 Tobacco use | CPT/HCPCS: G0463 ==

== ENCOUNTER → 2024-10-16 | Outpatient (CLI) | payer MEDICARE, OTHER | LOC: LAB 16:19 → LAB SHORT 16:19 | DX: N39.0 Urinary tract infection, site not specified (principal) | CPT/HCPCS: 87077; 87086; 87186 ==